=== PATIENT | female | born 1965 | race Caucasian/White ===

== ENCOUNTER → 2023-05-13 13:42 | Outpatient (REF) | payer OTHER, SELFPAY | LOC: RAD 13:42 | PROVIDERS: ATTENDING PHYSICIAN Surgery Vascular Surgery; REFERRING PHYSICIAN Internal Medicine Nephrology | DX: N18.4 Chronic kidney disease, stage 4 (severe) (principal) | CPT/HCPCS: 93985 ==

== ENCOUNTER 2023-05-16 08:20 | Day surgery (SDC) | payer OTHER, SELFPAY ==
[2023-05-16] VITALS (14 sets, daily range): BP systolic 105–145; BP diastolic 63–91; BMI 32.6
[2023-05-16 08:46] LABS: Hematocrit 35.1 % (37.0-47.0); Hemoglobin 11.8 g/dL (12.0-16.0); Mean Corp Hgb Conc. 33.6 g/dL (33.0-37.0); Mean Corpuscular Hgb 29.7 pg (27.0-31.0); Mean Corpuscular Volume 88.4 fL (81.0-99.0); Mean Platelet Volume 8.5 fL (7.4-10.4); Platelet Count 303 10^3/uL (130-400); Red Blood Cell Count 3.97 10^6/uL (4.20-5.40); Red Cell Dist. Width 13.4 % (11.5-14.5); White Blood Cell Count 5.2 10^3/uL (4.8-10.8)
[2023-05-16 09:01] LABS: APTT 26.9 Sec (23.4-35.0); INR 0.98
[2023-05-16] MEDS: PERIDEX 0.12% ORAL RINSE 15 ML PO (09:04)
[2023-05-16] MEDS: NSS 500 IV (09:04)
[2023-05-16] MEDS: BACTROBAN NASAL 1 GRAM NASAL (09:04)
[2023-05-16 09:14] LABS: Blood Urea Nitrogen 57 mg/dl (7-17); Calcium 9.2 mg/dl (8.4-10.2); Carbon Dioxide 21 mmol/L (22-30); Chloride 108 mmol/L (98-107); Estimated Creatinine Clearance 15 ml/min; Glucose 109 mg/dl (70-99); Potassium 4.2 mmol/L (3.5-5.1); Sodium 137 mmol/L (135-145); eGFR 11.49
--- NOTE | 2023-05-16 09:53 | W.SUR.PREOP ---
Pre-Operative Surgical Note
-
I have examined this patient prior to the performance of the scheduled procedure.
The patient's condition is unchanged from the time of the current History and
Physical and the patient is able to undergo the scheduled procedure.
[2023-05-16] MEDS: DILAUDID 0.5 MG IV (15:02)
[2023-05-16] MEDS: DILAUDID 0.25 MG IV ×2 (15:21→15:33)
[2023-05-16] MEDS: ZOFRAN 4 MG IV (16:28)
[2023-05-16] MEDS: ROXICODONE 5 MG PO (17:29)
--- NOTE | 2023-05-16 17:38 | PTCARENOTE ---
Pt sitting up at bedside , getting up to bathroom with RN and felt dizzy @ 1655. Pt layed back down in bed sbp 114. After 5 minutes pt wanted to try to go to bathroom, pt oob to bathroom and able to void. After returning from bathroom, pt nauseous
and vomited clear liquid. Pt after vomiting stated she felt relief and so much better. Pt denied any nausea or dizziness and stated she wanted to go home. Pt sipping on some water @ 1725 and no further vomiting. Pt discharged to home at 1740 .
== END 2023-05-16 17:40 | disposition home or self-care (01) ==
LOC: CATH 08:20
PROVIDERS: ATTENDING PHYSICIAN Surgery Vascular Surgery; FAMILY PHYSICIAN Family Medicine
DX: I12.0 Hypertensive chronic kidney disease with stage 5 chronic kidney disease or end stage renal disease (principal); N18.6 End stage renal disease; Z99.2 Dependence on renal dialysis; Z87.891 Personal history of nicotine dependence
CPT/HCPCS: 36819; 80048; 85027; 85610; 85730; 86850; 86900; 86901; 93005

== ENCOUNTER → 2023-06-26 09:43 | Outpatient (REF) | payer OTHER, SELFPAY | LOC: RAD 09:43 | PROVIDERS: ATTENDING PHYSICIAN Physician Assistant; FAMILY PHYSICIAN Family Medicine | DX: I77.0 Arteriovenous fistula, acquired (principal) | CPT/HCPCS: 93990 ==